=== PATIENT | male | born 1955 | race Caucasian/White ===

== ENCOUNTER 2017-12-15 08:10 | Inpatient (IN) | payer OTHER ==
[2017-12-15] VITALS (7 sets, daily range): BP systolic 151–184; BP diastolic 80–106
[~2017-12-15] VITALS: Ht 187.9 cm; Wt 93.4 kg
--- NOTE | ~2017-12-15 | EKG ---
[place], [place] ELECTROCARDIOGRAM REPORT NAME: JAIMEE SHEPARD UNIT #: [id number] ROOM: 528 DOCTOR: LUCRECIA DRAFT REPORT BIRTHDATE: [birth year] [facility] Test Date: 2017-12-15 Test Time: 09:29:36 Pat Name: JAIMEE SHEPARD Department: Room: Gender: M Information Coordinator: EKG.AL : 1955 Requested By: CATHIE SHORT Order Number: [id number] Reading MD: Scott Flores MD Measurements Intervals [place] Rate: 82 P: -8 CT: 203 QRS: 69 QRSD: 134 T: -24 QT: 421 QTc: 492 Interpretive Statements Sinus rhythm IVCD, consider atypical RBBB Baseline wander in lead(s) V1 Electronically Signed On 12-16-2017 18:57:56 PDT by Scott Flores MD CM:EKGRPT:ELECTROCARDIOGRAM REPORT [id number] CATHIE SINGER DRAFT REPORT CATHIE SHORT MD
[2017-12-15 08:25] LABS: BASO % 0.3 % (0.0-1.0); EOS # 0.1 10*3/uL (0.0-0.4); EOS % 0.7 % (1.0-4.0); HEMATOCRIT 49.5 % (42.0-52.0); HEMOGLOBIN 17.1 g/dl (14.0-18.0); LYMPH # 1.8 10*3/uL (1.3-4.4); LYMPH % 18.7 % (27.0-41.0); MEAN CELL VOLUME 96.3 fl (80.0-94.0); MEAN CORPUSCULAR HGB 33.3 pg (27.0-31.0); MEAN CORPUSCULAR HGB CONC 34.5 g/dl (33.0-37.0); MEAN PLATELET VOLUME 8.9 fl (9.6-12.3); MONO # 0.5 10*3/uL (0.1-1.0); MONO % 5.3 % (3.0-9.0); NEUT # 7.3 10*3/uL (2.3-7.9); NEUT % 74.7 % (47.0-73.0); PLATELET COUNT AUTOMATED 197 10*3/uL (130-400); RED BLOOD COUNT 5.14 10*6/uL (4.50-5.90); RED CELL DISTRI WIDTH 12.7 % (0-14.5); WHITE BLOOD COUNT 9.7 10*3/uL (4.8-10.8)
[2017-12-15 08:41] LABS: ALBUMIN 3.3 gm/dl (3.1-4.5); ALKALINE PHOSPHATASE 75 U/L (45-117); BUN 11 mg/dl (7-24); CHLORIDE 99 mmol/L (98-107); CREATININE 1.03 mg/dL (0.70-1.30); POTASSIUM 3.4 mmol/L (3.5-5.1); SGOT/AST 20 IU/L (3-35); SGPT/ALT 26 U/L (12-78); SODIUM 135 mmol/L (136-145); TOTAL PROTEIN 7.8 gm/dL (6.4-8.2)
[2017-12-15 08:42] LABS: ETHYL ALCOHOL < 3.0 mg/dl (<3)
[2017-12-15 08:43] LABS: ACT PARTIAL THROMBO TIME 27.2 SECONDS (20.8-31.5)
[2017-12-15] MEDS ORDERED: NORCO 5-325 TA1 EACH PO (09:01)
[2017-12-15 15:03] LABS: BILIRUBIN 2+ (NEGATIVE); BLOOD 1+ (NEGATIVE); CLARITY SL CLOUDY (CLEAR); COLOR YELLOW (YELLOW); GLUCOSE NEGATIVE (NEGATIVE); KETONE 1+ (NEGATIVE); LEUKO ESTERASE NEGATIVE (NEGATIVE); NITRITE NEGATIVE (NEGATIVE); PH 5.5 (5.0-9.0)
[2017-12-15 15:26] LABS: BACTERIA TRACE
[2017-12-16] VITALS: BP 161/85
[2017-12-16 06:19] LABS: BASO # 0.1 10*3/uL (0.0-0.1); BASO % 0.6 % (0.0-1.0); EOS # 0.2 10*3/uL (0.0-0.4); EOS % 1.9 % (1.0-4.0); HEMOGLOBIN 16.2 g/dl (14.0-18.0); LYMPH # 1.8 10*3/uL (1.3-4.4); LYMPH % 22.7 % (27.0-41.0); MEAN CELL VOLUME 97.5 fl (80.0-94.0); MEAN CORPUSCULAR HGB 33.6 pg (27.0-31.0); MEAN CORPUSCULAR HGB CONC 34.5 g/dl (33.0-37.0); MEAN PLATELET VOLUME 9.3 fl (9.6-12.3); MONO # 0.5 10*3/uL (0.1-1.0); MONO % 6.8 % (3.0-9.0); NEUT # 5.3 10*3/uL (2.3-7.9); NEUT % 67.5 % (47.0-73.0); PLATELET COUNT AUTOMATED 194 10*3/uL (130-400); RED BLOOD COUNT 4.82 10*6/uL (4.50-5.90); RED CELL DISTRI WIDTH 12.8 % (0-14.5); WHITE BLOOD COUNT 7.9 10*3/uL (4.8-10.8)
[2017-12-16 06:51] LABS: BUN 12 mg/dl (7-24); CHLORIDE 96 mmol/L (98-107); CHOLESTEROL 152 mg/dL (<200); CREATININE 0.96 mg/dL (0.70-1.30); HDL CHOLESTEROL 51 mg/dl (40-60); LDL CHOLESTEROL 73 mg/dL (9-159); PHOSPHOROUS 3.5 mg/dL (2.5-4.9); POTASSIUM 3.5 mmol/L (3.5-5.1); SGOT/AST 21 IU/L (3-35); SGPT/ALT 27 U/L (12-78); SODIUM 133 mmol/L (136-145); TOTAL PROTEIN 7.4 gm/dL (6.4-8.2); TRIGLYCERIDES 141 mg/dl (<150); VLDL CHOLESTEROL 28 mg/dL (6-40)
[2017-12-16 06:57] LABS: ALKALINE PHOSPHATASE 70 U/L (45-117)
[2017-12-16 08:00] VITALS: BP 157/84
[2017-12-16 08:50] LABS: VITAMIN D, 25-HYDROXY 15.6 ng/mL (30-100)
[2017-12-16] MEDS ORDERED: LEVAQUIN750 M1 PO (10:57)
[2017-12-16] MEDS ORDERED: ZITHROMAX250 MG PO (10:58)
[2017-12-16] MEDS ORDERED: HYDROCODONE-AC1 EAC1 PO (10:59)
[2017-12-16] MEDS ORDERED: MUCINEX ER600 MG PO (10:59)
[2017-12-16] MEDS ORDERED: Vitamin D PO (10:59)
[2017-12-16 11:49] VITALS: BP 149/82
== END 2017-12-16 12:47 | disposition home or self-care (01) | DRG 183 ==
LOC: ED 08:10 → EDHOLD 10:25 → 5E 10:25
PROVIDERS: Emergency Medicine; Student in an Organized Health Care Education/Training Program
DX: S22.41XA Multiple fractures of ribs, right side, initial encounter for closed fracture (principal); J18.1 Lobar pneumonia, unspecified organism; E87.1 Hypo-osmolality and hyponatremia; Z79.899 Other long term (current) drug therapy; E87.6 Hypokalemia; I10 Essential (primary) hypertension; W01.0XXA Fall on same level from slipping, tripping and stumbling without subsequent striking against object, initial encounter; Y93.89 Activity, other specified; Y92.89 Other specified places as the place of occurrence of the external cause; Y99.8 Other external cause status